=== PATIENT | male | born 1980 | race American Indian/Alaskan Native ===

== ENCOUNTER 2020-03-13 04:25 | Inpatient (IN) | payer MEDICAID ==
[2020-03-13] MEDS ORDERED: ONDANSETRON 4 MG/2 ML INJ IV ONE ×2 (04:51→07:08)
[2020-03-13 05:29] LABS: Basophils # (Auto) 0.1 K/mm3 (0.0-0.1); Eosinophils # (Auto) 0.1 K/mm3 (0.0-0.4); Eosinophils % (Auto) 1.9 % (0.0-4.3); Hematocrit 20.4 % (35.5-45.6); Hemoglobin 6.7 gm/dl (11.8-15.2); Lymphocytes # (Auto) 1.5 K/mm3 (1.2-5.4); Lymphocytes % (Auto) 23.8 % (13.4-35.0); Mean Corpuscular HGB Conc 33 % (32-34); Monocytes # (Auto) 0.5 K/mm3 (0.0-0.8); Monocytes % (Auto) 7.6 % (0.0-7.3); Platelet Count 507 K/mm3 (140-440); Red Blood Count 2.93 M/mm3 (3.65-5.03); Red Cell Distribution Width 16.1 % (13.2-15.2)
[2020-03-13 05:35] LABS: Mean Corpuscular Volume 70 fl (84-94)
[2020-03-13 05:48] LABS: Calcium 8.3 mg/dL (8.4-10.2)
--- NOTE | 2020-03-13 06:18 | Emergency Department Report ---
ED General Adult HPI - General Chief complaint: Nausea/Vomiting/Diarrhea Stated complaint: NAUSEA,VOMITING,HIGH BLOOD SUGAR Time Seen by Provider: 03/13/20 06:14 Source: patient, EMS Mode of arrival: Stretcher Limitations: No Limitations - History of Present Illness Initial comments: This is a 39-year-old male who states he was hospitalized about a year ago and transfused for a bleeding ulcer. This is his second visit to this facility In February for evaluation of similar symptoms. At this time he states that about an hour prior to arrival, he threw up blood "clumps" and mucus. He denied any dark or black or tarry stool. He complains of epigastric pain similar to his previous episode of GI bleeding. He denies fever or chills. He denies chest pain cough or difficulty in breathing. His pain is dull and nonradiating. He is unable to take p.o. secondary to nausea. Patient states that he has moved here from [place]. He has had previous end oscopy in the past. He has not established himself with local care providers. He denies any problems with alcohol and states "I do not drink". He also denies any problems with substance abuse. He has a history of diabetic gastroparesis apparently. He is not compliant with his insulin for 3 days. -: Gradual, hour(s) Location: abdomen Severity scale (0 -10): 0 - Related Data Home Medications Medication Instructions Recorded Confirmed Last Taken Carafate 10 ml PO BID 02/24/20 02/24/20 Unknown Doxazosin [Cardura] 1 mg PO QDAY 02/24/20 02/24/20 Unknown Ondansetron HCl [Zofran] 4 mg PO Q4HR PRN 02/24/20 02/24/20 Unknown hydrALAZINE [Apresoline TAB] 10 mg PO Q8H 02/24/20 02/24/20 Unknown Previous Rx's Medication Instructions Recorded Last Taken Type Doxazosin [Cardura] 1 mg PO QDAY #30 tablet 02/24/20 Unknown Rx Insulin Glargine [Lantus VIAL] 5 unit SUB-Q QHS #5 ml 02/24/20 Unknown Rx Metoclopramide [Reglan] 10 mg PO QID PRN #30 tab 02/24/20 Unknown Rx Sucralfate [Carafate] 1 gm PO Q6HR #120 udc 02/24/20 Unknown Rx hydrALAZINE [Apresoline TAB] 10 mg PO Q8H #90 tablet 02/24/20 Unknown Rx Allergies Allergy/AdvReac Type Severity Reaction Status Date / Time Penicillins Allergy Unknown Verified 02/24/20 11:32 ED Review of Systems ROS: Stated complaint: NAUSEA,VOMITING,HIGH BLOOD SUGAR Other details as noted in HPI Constitutional: denies: chills, fever Eyes: denies: eye pain, vision change ENT: denies: ear pain, throat pain Respiratory: denies: cough, shortness of breath, wheezing Cardiovascular: denies: chest pain, palpitations Endocrine: no symptoms reported Gastrointestinal: abdominal pain, nausea, vomiting, hematemesis. denies: diarrhea Genitourinary: denies: urgency, dysuria Musculoskeletal: denies: back pain, joint swelling, arthralgia Skin: denies: rash, lesions Neurological: denies: headache, weakness, paresthesias Psychiatric: denies: anxiety, depression Hematological/Lymphatic: denies: easy bleeding, easy bruising ED Past Medical Hx - Past Medical History Previous Medical History?: Yes Hx Hypertension: Yes Hx Diabetes: Yes Additional medical history: BLEEDING ULCER AND GASTROPORESIS - Surgical History Past Surgical History?: No - Social History Smoking Status: Current Every Day Smoker - Medications Home Medications: Home Medications Medication Instructions Recorded Confirmed Last Taken Type Carafate 10 ml PO BID 02/24/20 02/24/20 Unknown History Doxazosin [Cardura] 1 mg PO QDAY 02/24/20 02/24/20 Unknown History Doxazosin [Cardura] 1 mg PO QDAY #30 tablet 02/24/20 Unknown Rx Insulin Glargine [Lantus VIAL] 5 unit SUB-Q QHS #5 ml 02/24/20 Unknown Rx Metoclopramide [Reglan] 10 mg PO QID PRN #30 tab 02/24/20 Unknown Rx Ondansetron HCl [Zofran] 4 mg PO Q4HR PRN 02/24/20 02/24/20 Unknown History Sucralfate [Carafate] 1 gm PO Q6HR #120 udc 02/24/20 Unknown Rx hydrALAZINE [Apresoline TAB] 10 mg PO Q8H 08/06/20 08/06/20 Unknown History hydrALAZINE [Apresoline TAB] 10 mg PO Q8H #90 tablet 02/24/20 Unknown Rx ED Physical Exam - General Limitations: Physical Limitation General appearance: alert, in no apparent distress - Head Head exam: Present: atraumatic, normocephalic - Eye Eye exam: Present: normal appearance. Absent: scleral icterus - ENT ENT exam: Present: mucous membranes moist - Neck Neck exam: Present: normal inspection. Absent: tenderness, meningismus - Respiratory Respiratory exam: Present: normal lung sounds bilaterally. Absent: respiratory distress - Cardiovascular Cardiovascular Exam: Present: regular rate, normal rhythm. Absent: systolic mu rmur, diastolic murmur, rubs, gallop - GI/Abdominal GI/Abdominal exam: Present: soft, tenderness, normal bowel sounds. Absent: distended, guarding, rebound, rigid - Rectal Rectal exam: Present: deferred - Extremities Exam Extremities exam: Present: normal inspection - Back Exam Back exam: Present: normal inspection - Neurological Exam Neurological exam: Present: alert, oriented X3, CN II-XII intact. Absent: motor sensory deficit - Psychiatric Psychiatric exam: Present: normal affect, normal mood - Skin Skin exam: Present: warm, dry, intact, normal color. Absent: rash ED Course Vital Signs 03/13/20 03/13/20 03/13/20 04:28 04:30 04:33 Temperature 98.2 F 98.2 F Pulse Rate 92 H 90 86 Respiratory 11 L 10 L 20 Rate Blood Pressure 188/113 Blood Pressure 198/125 [Left] O2 Sat by Pulse 100 100 Oximetry 03/13/20 03/13/20 03/13/20 04:38 05:00 05:30 Temperature Pulse Rate 86 82 Respiratory 20 8 L 13 Rate Blood Pressure 211/115 151/84 Blood Pressure [Left] O2 Sat by Pulse 99 99 100 Oximetry 03/13/20 03/13/20 03/13/20 06:00 06:30 06:46 Temperature Pulse Rate 91 H 87 97 H Respiratory 9 L 15 Rate Blood Pressure 182/113 166/105 145/91 Blood Pressure 145/91 [Left] O2 Sat by Pulse 100 100 Oximetry 03/13/20 03/13/20 03/13/20 07:00 08:00 08:58 Temperature 98.1 F Pulse Rate 93 H 82 88 Respiratory 11 L 12 12 Rate Blood Pressure 177/102 155/87 184/123 Blood Pressure [Left] O2 Sat by Pulse 98 97 100 Oximetry 03/13/20 03/13/20 03/13/20 09:01 09:13 09:43 Temperature 98.2 F 98.2 F Pulse Rate 90 86 76 Respiratory 10 L 12 12 Rate Blood Pressure 184/123 189/118 191/108 Blood Pressure [Left] O2 Sat by Pulse 100 99 100 Oximetry 03/13/20 03/13/20 03/13/20 10:00 10:13 10:21 Temperature 98.1 F 98.1 F Pulse Rate 77 79 79 Respiratory 10 L 12 12 Rate Blood Pressure 200/125 218/135 218/135 Blood Pressure [Left] O2 Sat by Pulse 100 100 100 Oximetry 03/13/20 03/13/20 03/13/20 11:00 11:30 11:41 Temperature Pulse Rate 74 75 80 Respiratory 18 14 14 Rate Blood Pressure 179/105 195/114 195/114 Blood Pressure [Left] O2 Sat by Pulse 99 100 Oximetry - Reevaluation(s) Reevaluation #1: Patient's blood pressure on recheck was very close to the normotensive range. Blood pressure management at this point is not required. He was given Protonix, analgesia and Zofran. He is given insulin for his hyperglycemia. He is not in DKA. A unit of red cells is ordered for transfusion. Patient will be admitted to the hospital for further care and evaluation. 03/13/20 07:11 03/13/20 07:12 03/13/20 07:14 Patient has dropped his hemoglobin more than 2 g since earlier this month. Reevaluation #2: Patient is noted to have a troponin of 0.156 somewhat elevated CK. His twelve- lead EKG shows left axis deviation right bundle Kaiden pattern, LVH, left atrial enlargement, normal sinus rhythm at 88. I compared this to his previous EKG earlier this month. There is no interval change. Unit of blood has been ordered. I will give the patient an aspirin. I do not think he is a candidate for anticoagulation. Additionally he is not complaining of chest pain and he is actually quite comfortable at this time. I do not think he is a likely candidate for emergent catheterization or endoscopy. I have placed a consult to cardiology and GI. I have called the hospitalist service for further care and evaluation. Obviously the patient will be admitted for further care and stabilization. 03/13/20 07:54 ED Medical Decision Making - Lab Data Result diagrams: 03/13/20 04:57 03/13/20 04:57 Laboratory Results - last 24 hr 03/13/20 03/13/20 03/13/20 04:57 04:57 04:57 WBC 6.5 RBC 2.93 L Hgb 6.7 L Hct 20.4 L MCV 70 L MCH 23 L MCHC 33 RDW 16.1 H Plt Count 507 H Lymph % (Auto) 23.8 [place] % (Auto) 7.6 H Eos % (Auto) 1.9 Baso % (Auto) 2.0 H Lymph # 1.5 [place] # 0.5 Eos # 0.1 Baso # 0.1 Seg Neutrophils % 64.7 Seg Neutrophils # 4.2 VBG pH 7.390 Sodium 129 L Potassium 4.2 Chloride 90.6 L Carbon Dioxide 27 Anion Gap 16 BUN 32 H Creatinine 1.6 H Estimated GFR 58 BUN/Creatinine Ratio 20 Glucose 537 H* Calcium 8.3 L Laboratory Results - last 24 hr 03/13/20 03/13/20 03/13/20 04:57 04:57 04:57 WBC 6.5 RBC 2.93 L Hgb 6.7 L Hct 20.4 L MCV 70 L MCH 23 L MCHC 33 RDW 16.1 H Plt Count 507 H Lymph % (Auto) 23.8 [place] % (Auto) 7.6 H Eos % (Auto) 1.9 Baso % (Auto) 2.0 H Lymph # 1.5 [place] # 0.5 Eos # 0.1 Baso # 0.1 Seg Neutrophils % 64.7 Seg Neutrophils # 4.2 APTT VBG pH 7.390 Sodium 129 L Potassium 4.2 Chloride 90.6 L Carbon Dioxide 27 Anion Gap 16 BUN 32 H Creatinine 1.6 H Estimated GFR 58 BUN/Creatinine Ratio 20 Glucose 537 H* Lactic Acid Calcium 8.3 L Magnesium Total Bilirubin Direct Bilirubin AST ALT Alkaline Phosphatase Total Creatine Kinase CK-MB (CK-2) CK-MB (CK-2) Rel Index Troponin T NT-Pro-B Natriuret Pep Total Protein Albumin Albumin/Globulin Ratio Lipase 03/13/20 03/13/20 03/13/20 06:36 06:36 06:36 WBC RBC Hgb Hct MCV MCH MCHC RDW Plt Count Lymph % (Auto) [place] % (Auto) Eos % (Auto) Baso % (Auto) Lymph # [place] # Eos # Baso # Seg Neutrophils % Seg Neutrophils # APTT 31.5 VBG pH Sodium Potassium Chloride Carbon Dioxide Anion Gap BUN Creatinine Estimated GFR BUN/Creatinine Ratio Glucose Lactic Acid 1.00 Calcium Magnesium 1.90 Total Bilirubin 0.20 Direct Bilirubin < 0.2 AST 11 ALT 13 Alkaline Phosphatase 78 Total Creatine Kinase CK-MB (CK-2) CK-MB (CK-2) Rel Index Troponin T 0.156 H* NT-Pro-B Natriuret Pep 1151 H Total Protein 5.9 L Albumin 2.5 L Albumin/Globulin Ratio 0.7 Lipase 61 H 03/13/20 06:36 WBC RBC Hgb Hct MCV MCH MCHC RDW Plt Count Lymph % (Auto) [place] % (Auto) Eos % (Auto) Baso % (Auto) Lymph # [place] # Eos # Baso # Seg Neutrophils % Seg Neutrophils # APTT VBG pH Sodium Potassium Chloride Carbon Dioxide Anion Gap BUN Creatinine Estimated GFR BUN/Creatinine Ratio Glucose Lactic Acid Calcium Magnesium Total Bilirubin Direct Bilirubin AST ALT Alkaline Phosphatase Total Creatine Kinase 7 L CK-MB (CK-2) 4.9 H CK-MB (CK-2) Rel Index 70.0 H Troponin T NT-Pro-B Natriuret Pep Total Protein Albumin Albumin/Globulin Ratio Lipase - Radiology Data Radiology results: report reviewed, image reviewed No acute process chest x-ray Critical care attestation.: If time is entered above; I have spent that time in minutes in the direct care of this critically ill patient, excluding procedure time. ED Disposition Clinical Impression: Upper GI bleeding, Symptomatic anemia, Elevated troponin Hyperglycemia due to type 2 diabetes mellitus Qualifiers: Diabetes mellitus chcf insulin use: without chcf use Qualified Code(s ): E11.65 - Type 2 diabetes mellitus with hyperglycemia Cardiomyopathy Qualifiers: Cardiomyopathy type: unspecified Qualified Code(s): I42.9 - Cardiomyopathy, unspecified Disposition: OP ADMIT IP TO THIS HOSP Is pt being admited?: Yes Does the pt Need Aspirin: Yes Condition: Stable Time of Disposition: 15:44
[2020-03-13] MEDS ORDERED: PANTOPRAZOLE 40 MG INJ IV ONE (06:19)
[2020-03-13] MEDS ORDERED: INSULIN REGULAR, HUMAN 100 UNIT/ML 3ML VIAL IV ONE (06:21)
[2020-03-13] MEDS ORDERED: INSULIN REGULAR, HUMAN 100 UNITS/1 ML ONE (06:30)
--- NOTE | 2020-03-13 07:01 | XRay Report ---
CHEST 1 VIEW, 03/13/2020 6:35 AM CLINICAL INFORMATION/INDICATION: Chest pain. Nausea. COMPARISON: None FINDINGS: SUPPORT DEVICES: None. HEART: The cardiac silhouette is normal in size. LUNGS/PLEURA: The lungs are clear of focal airspace disease or significant pleural effusion. ADDITIONAL FINDINGS: No additional acute findings. IMPRESSION: 1. No evidence of acute cardiopulmonary process. Signer Name: Victoria Auguste MD Signed: 03/13/2020 6:57 AM Workstation Name: [id number]
[2020-03-13] MEDS ORDERED: SODIUM CHLORIDE 0.9% 500 ML 500 ML IV ONE (07:04)
[2020-03-13 07:07] LABS: Creatine Kinase MB 4.9 ng/mL (0.0-4.0)
[2020-03-13] MEDS ORDERED: MORPHINE 2 MG/1 ML INJ IV ONE (07:08)
[2020-03-13 07:17] LABS: Alanine Aminotransferase 13 units/L (7-56); Albumin 2.5 g/dL (3.9-5)
[2020-03-13 07:20] LABS: Bilirubin,Direct < 0.2 mg/dL (0-0.2)
[2020-03-13 07:32] LABS: Chol/HDL Ratio 1.73 %; HDL Cholesterol 49 mg/dL (40-59); LDL Cholesterol,Direct 25 mg/dL (50-130)
[2020-03-13] MEDS ORDERED: ASPIRIN 325 MG TAB PO ONE (07:52)
--- NOTE | 2020-03-13 12:47 | Gastroenterology Consultation ---
History of Present Illness - Reason for Consult Consult date: 03/13/20 Gi bleed Requesting physician: OSCAR YATES - History of Present Illness This is a 39 yo male with pmh of PUD, HTN, and DM admitted overnight for GI bleed. Patient reports having epigastric pain with nausea and hematemesis for the past several days. He was seen in the ED earlier this month with similar complaints and being out of his medications. He states he just recently moved to the area and about 2 years ago was hospitalized for bleeding ulcer and had EGD in [place]. Colonoscopy done last year in [place] also. No records available. Denies any melena or rectal bleeding. In the ED, noted to have drop in Hgb and received 1 unit of PRBC overnight. Noted to have elevated troponin and elevated BP. Cardiology consulted. Denies any alcohol use or NSAID use. Not on any medication. Medication list reviewed. Past History Past Medical History: diabetes, GERD, hypertension Social history: denies: alcohol abuse Family history: no significant family history Medications and Allergies Allergies Allergy/AdvReac Type Severity Reaction Status Date / Time Penicillins Allergy Unknown Verified 02/24/20 11:32 Home Medications Medication Instructions Recorded Confirmed Last Taken Type Carafate 10 ml PO BID 02/24/20 02/24/20 Unknown History Doxazosin [Cardura] 1 mg PO QDAY 02/24/20 02/24/20 Unknown History Doxazosin [Cardura] 1 mg PO QDAY #30 tablet 02/24/20 Unknown Rx Insulin Glargine [Lantus VIAL] 5 unit SUB-Q QHS #5 ml 02/24/20 Unknown Rx Metoclopramide [Reglan] 10 mg PO QID PRN #30 tab 02/24/20 Unknown Rx Ondansetron HCl [Zofran] 4 mg PO Q4HR PRN 02/24/20 02/24/20 Unknown History Sucralfate [Carafate] 1 gm PO Q6HR #120 udc 02/24/20 Unknown Rx hydrALAZINE [Apresoline TAB] 10 mg PO Q8H 02/24/20 02/24/20 Unknown History hydrALAZINE [Apresoline TAB] 10 mg PO Q8H #90 tablet 02/24/20 Unknown Rx Active Meds: Active Medications Ondansetron HCl (Zofran) 4 mg IV Q8H PRN PRN Reason: Nausea And Vomiting Pantoprazole Sodium (Protonix) 40 mg IV BID DIMITRIOS Review of Systems - Review of Systems All systems: negative Constitutional: no weight loss, no weight gain Eyes: no change in vision Cardiovascular: no chest pain Gastrointestinal: abdominal pain, nausea, vomiting, melena, no BRBPR, no h ematochezia Neurological: weakness, no head injury Psychiatric: no anxiety Endocrine: no cold intolerance Allergic/Immunologic: no wheezing Exam - Constitutional Vital Signs: Temp Pulse Resp BP Pulse Ox 98.1 F 88 13 101/55 100 03/13/20 10:21 03/13/20 12:10 03/13/20 12:10 03/13/20 12:10 03/13/20 12:10 General appearance: mild distress - EENT Eyes: EOM intact ENT: hearing intact - Neck Neck: supple - Respiratory Respiratory effort: normal - Cardiovascular Rhythm: regular Heart Sounds: Present: S1 & S2 - Gastrointestinal General gastrointestinal: Present: soft, tender, non-distended - Integumentary Integumentary: Present: clear, warm - Neurologic Neurological: alert and oriented x3 - Labs CBC & Chem 7: 03/13/20 04:57 03/13/20 04:57 Lab Results: Laboratory Results - last 24 hr 03/13/20 03/13/20 03/13/20 04:57 04:57 04:57 WBC 6.5 RBC 2.93 L Hgb 6.7 L Hct 20.4 L MCV 70 L MCH 23 L MCHC 33 RDW 16.1 H Plt Count 507 H Lymph % (Auto) 23.8 [place] % (Auto) 7.6 H Eos % (Auto) 1.9 Baso % (Auto) 2.0 H Lymph # 1.5 [place] # 0.5 Eos # 0.1 Baso # 0.1 Seg Neutrophils % 64.7 Seg Neutrophils # 4.2 APTT VBG pH 7.390 Sodium 129 L Potassium 4.2 Chloride 90.6 L Carbon Dioxide 27 Anion Gap 16 BUN 32 H Creatinine 1.6 H Estimated GFR 58 BUN/Creatinine Ratio 20 Glucose 537 H* Lactic Acid Calcium 8.3 L Magnesium Total Bilirubin Direct Bilirubin AST ALT Alkaline Phosphatase Total Creatine Kinase CK-MB (CK-2) CK-MB (CK-2) Rel Index Troponin T NT-Pro-B Natriuret Pep Total Protein Albumin Albumin/Globulin Ratio Triglycerides Cholesterol LDL Cholesterol Direct HDL Cholesterol Cholesterol/HDL Ratio Lipase Blood Type Antibody Screen Crossmatch 03/13/20 03/13/20 03/13/20 06:36 06:36 06:36 WBC RBC Hgb Hct MCV MCH MCHC RDW Plt Count Lymph % (Auto) [place] % (Auto) Eos % (Auto) Baso % (Auto) Lymph # [place] # Eos # Baso # Seg Neutrophils % Seg Neutrophils # APTT 31.5 VBG pH Sodium Potassium Chloride Carbon Dioxide Anion Gap BUN Creatinine Estimated GFR BUN/Creatinine Ratio Glucose Lactic Acid Calcium Magnesium 1.90 Total Bilirubin 0.20 Direct Bilirubin < 0.2 AST 11 ALT 13 Alkaline Phosphatase 78 Total Creatine Kinase CK-MB (CK-2) CK-MB (CK-2) Rel Index Troponin T 0.156 H* NT-Pro-B Natriuret Pep 1151 H Total Protein 5.9 L Albumin 2.5 L Albumin/Globulin Ratio 0.7 Triglycerides 98 Cholesterol 85 LDL Cholesterol Direct 25 L HDL Cholesterol 49 Cholesterol/HDL Ratio 1.73 Lipase 61 H Blood Type B POSITIVE Antibody Screen Negative Crossmatch See Detail 03/13/20 03/13/20 06:36 06:36 WBC RBC Hgb Hct MCV MCH MCHC RDW Plt Count Lymph % (Auto) [place] % (Auto) Eos % (Auto) Baso % (Auto) Lymph # [place] # Eos # Baso # Seg Neutrophils % Seg Neutrophils # APTT VBG pH Sodium Potassium Chloride Carbon Dioxide Anion Gap BUN Creatinine Estimated GFR BUN/Creatinine Ratio Glucose Lactic Acid 1.00 Calcium Magnesium Total Bilirubin Direct Bilirubin AST ALT Alkaline Phosphatase Total Creatine Kinase 338 H CK-MB (CK-2) 4.9 H CK-MB (CK-2) Rel Index 1.4 Troponin T NT-Pro-B Natriuret Pep Total Protein Albumin Albumin/Globulin Ratio Triglycerides Cholesterol LDL Cholesterol Direct HDL Cholesterol Cholesterol/HDL Ratio Lipase Blood Type Antibody Screen Crossmatch Assessment and Plan - Patient Problems (1) Upper GI bleeding Current Visit: Yes Status: Acute Plan to address problem: # Hematemesis # Upper GI bleed - Hgb down from earlier this month. down to 6.7. s/p 1 unit of PRBC. - h/o ulcers per patient report - hypertensive. Rec: - will plan for EGD. - keep NPO - monitor H/H serially. - protonix IV. - antiemetics prn. - further recs based on endoscopy results.
[2020-03-13] MEDS: PANTOPRAZOLE 40 MG INJ IV SCH ×2 (12:58→22:46)
[2020-03-13] MEDS: ONDANSETRON 4 MG/2 ML INJ IV PRN (12:58)
--- NOTE | 2020-03-13 13:22 | Consultation ---
History of Present Illness Consult date: 03/13/20 Consult reason: elevated troponin History of present illness: 39-year old male who presents with abdominal pain, nausea, vomiting ongoing for several days and uncontrolled blood pressure. Of note, he was seen in the ED, early February with similar complaints. He has a reported history of diabetes, gastroparesis, gastric ulcers and hypertension. It is also reported he has been out of his medications for several days. Systolic blood pressure greater than 180 on initial workup. A cardiac consultation has been requested for elevated troponin measurement. Initial labs revealed severe anemia with a HCT of 20.4 and uncontrolled diabetes, blood glucose at 537. Creatinine of 1.6 and Troponin T at 0.156. There were no reports of chest pain. There is no reported cardiac history. An ECG is sinus rhythm with left anterior fascicular block and right bundle branch block. Medications and Allergies Allergies Allergy/AdvReac Type Severity Reaction Status Date / Time Penicillins Allergy Unknown Verified 02/24/20 11:32 Home Medications Medication Instructions Recorded Confirmed Last Taken Type Carafate 10 ml PO BID 02/24/20 02/24/20 Unknown History Doxazosin [Cardura] 1 mg PO QDAY 02/24/20 02/24/20 Unknown History Doxazosin [Cardura] 1 mg PO QDAY #30 tablet 02/24/20 Unknown Rx Insulin Glargine [Lantus VIAL] 5 unit SUB-Q QHS #5 ml 02/24/20 Unknown Rx Metoclopramide [Reglan] 10 mg PO QID PRN #30 tab 02/24/20 Unknown Rx Ondansetron HCl [Zofran] 4 mg PO Q4HR PRN 02/24/20 02/24/20 Unknown History Sucralfate [Carafate] 1 gm PO Q6HR #120 udc 02/24/20 Unknown Rx hydrALAZINE [Apresoline TAB] 10 mg PO Q8H 02/24/20 02/24/20 Unknown History hydrALAZINE [Apresoline TAB] 10 mg PO Q8H #90 tablet 02/24/20 Unknown Rx Active Meds: Active Medications Ondansetron HCl (Zofran) 4 mg IV Q8H PRN PRN Reason: Nausea And Vomiting Last Admin: 03/13/20 12:58 Dose: 4 mg Documented by: Pantoprazole Sodium (Protonix) 40 mg IV BID DIMITRIOS Last Admin: 03/13/20 12:58 Dose: 40 mg Documented by: Physical Examination Vital Signs Pulse Resp 92 H 11 L 03/13/20 04:28 03/13/20 04:28 General appearance: mild distress (with nausea and vomiting) Cardiac: Positive: Reg Rate and Rhythm Results 03/13/20 04:57 03/13/20 04:57 Cardiac Enzymes 03/13/20 03/13/20 Range/Units 06:36 06:36 AST 11 (5-40) units/L CK-MB (CK-2) 4.9 H (0.0-4.0) ng/mL Coagulation 03/13/20 Range/Units 06:36 APTT 31.5 (24.2-36.6) Sec. Lipids 03/13/20 Range/Units 06:36 Triglycerides 98 (2-149) mg/dL Cholesterol 85 (50-199) mg/dL HDL Cholesterol 49 (40-59) mg/dL Cholesterol/HDL Ratio 1.73 % CBC 03/13/20 Range/Units 04:57 WBC 6.5 (4.5-11.0) K/mm3 RBC 2.93 L (3.65-5.03) M/mm3 Hgb 6.7 L (11.8-15.2) gm/dl Hct 20.4 L (35.5-45.6) % Plt Count 507 H (140-440) K/mm3 Lymph # 1.5 (1.2-5.4) K/mm3 [place] # 0.5 (0.0-0.8) K/mm3 Eos # 0.1 (0.0-0.4) K/mm3 Baso # 0.1 (0.0-0.1) K/mm3 Comprehensive Metabolic Panel 03/13/20 03/13/20 Range/Units 04:57 06:36 Sodium 129 L (137-145) mmol/L Potassium 4.2 (3.6-5.0) mmol/L Chloride 90.6 L (98-107) mmol/L Carbon Dioxide 27 (22-30) mmol/L BUN 32 H (9-20) mg/dL Creatinine 1.6 H (0.8-1.3) mg/dL Glucose 537 H* (75-100) mg/dL Calcium 8.3 L (8.4-10.2) mg/dL Direct Bilirubin < 0.2 (0-0.2) mg/dL AST 11 (5-40) units/L ALT 13 (7-56) units/L Alkaline Phosphatase 78 (35-129) units/L Total Protein 5.9 L (6.3-8.2) g/dL Albumin 2.5 L (3.9-5) g/dL Assessment and Plan Elevated troponin, nonspecific 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
--- NOTE | 2020-03-13 14:11 | Anesthesia Consultation ---
<NATHAN US - Last Filed: 03/13/20 14:08> Anesthesia Consult and Med Hx Date of service: 03/13/20 - Airway Anesthetic Teeth Evaluation: Good ROM Head & Neck: Adequate Mental/Hyoid Distance: Adequate Mallampati Class: Class II Intubation Access Assessment: Probably Good - Pre-Operative Health Status ASA Pre-Surgery Classification: ASA3 Proposed Anesthetic Plan: MAC - Pulmonary Hx Smoking: Yes (past smoker) Hx Asthma: No Hx Respiratory Symptoms: No SOB: No COPD: No Home Oxygen Therapy: No Hx Pneumonia: No Hx Sleep Apnea: No - Cardiovascular System Hx Hypertension: Yes Hx Coronary Artery Disease: No Hx Heart Attack/AMI: No Hx Angina: No Hx Percutaneous Transluminal Coronary Angioplasty (PTCA): No Hx Cardia Arrhythmia: No Hx Pacemaker: No Hx Internal Defibrillator: No Hx Valvular Heart Disease: No Hx Heart Murmur: No Hx Peripheral Vascular Disease: No - Central Nervous System Hx Neuromuscular Disorder: No Hx Seizures: No CVA: No Hx Back Pain: No Hx Psychiatric Problems: No - Gastrointestinal Hx Ulcer: Yes Hx Gastroesophageal Reflux Disease: Yes - Endocrine Hx Renal Disease: No Hx End Stage Renal Disease: No Hx Cirrhosis: No Hx Liver Disease: No Hx Insulin Dependent Diabetes: Yes Hx Non-Insulin Dependent Diabetes: No Hx Thyroid Disease: No Hx Hypothyroidism: No Hx Hyperthyroidism: No - Hematic Hx Anemia: No Hx Sickle Cell Disease: No - Other Systems Hx Alcohol Use: No Hx Substance Use: No Hx Cancer: No Hx Obesity: No <MAGDIEL SILVA - Last Filed: 03/13/20 16:55> Anesthesia Consult and Med Hx - Pre-Operative Health Status ASA Pre-Surgery Classification: ASA3, Emergency - Additional Comments Anesthesia Medical History Comments: Hx poorly controlled HTN, DM and PUD presenting with coffee ground emesis and anemia scheduled for EGD. On arrival, patient noted to have significantly elevated blood pressure and glucose as well as elevated troponins and BNP w/ abnormal EKG (abnormal at baseline). Since admission, he has received 1 unit pRBCs however glucose and blood pressure remain severely elevated. Cardiology has been consulted and TTE has been ordered. Patient's medical condition was discussed with GI MD and decision was made to allow time for further optimization prior to EGD since he is currently HD stable. Plan for EGD tomorrow AM unless the patient shows signs of acute bleed or decompensation overnight. I discussed these concerns and plan with the patient. He verbalized understanding. GI also discussed the plan with alyssa polk.
--- NOTE | 2020-03-13 14:12 | Anesthesia Day of Surgery ---
<NATHAN US - Last Filed: 03/13/20 14:11> Anesthesia Day of Surgery - Day of Surgery Patient Examined: Yes Patient H&P Reviewed: Yes Patient is NPO: Yes Cardiac Clearance: Yes <MAGDIEL SILVA - Last Filed: 03/13/20 16:55> Anesthesia Day of Surgery - Day of Surgery Cardiac Clearance: No (additional cardiac work up pending)
[2020-03-13] MEDS ORDERED: SODIUM CHLORIDE 0.9% 1000 ML 1,000 ML IV SCH (14:30)
[2020-03-13] MEDS ORDERED: INSULIN LISPRO 100 UNIT/ML VIAL 3 mL SUB-Q ONE ×2 (14:48→17:41)
--- NOTE | 2020-03-13 15:04 | History and Physical Report ---
History of Present Illness Date of examination: 03/13/20 Date of admission: 03/13/20 08:13 Chief complaint: Hematemesis 1 hr ago History of present illness: 39-year-old male who states he was hospitalized about a year ago and transfused for a bleeding ulcer. This is his second visit to this facility for evaluation of similar symptoms. At this time he states that about an hour prior to arrival, he threw up blood "clumps" and mucus. He denied any dark or black or tarry stool. He complains of epigastric pain similar to his previous episode of GI bleeding. He denies fever or chills. He denies chest pain cough or difficulty in breathing. His pain is dull and nonradiating. He is unable to take p.o. secondary to nausea. Patient states that he has moved here from [place]. He has had previous endoscopy in the past. He has not established himself with local care providers. He denies any problems with alcohol and states "I do not drink". He also denies any problems with substance abuse. He has a history of diabetic gastroparesis apparently. He is not compliant with his insulin for 3 days. - Past Medical History Previous Medical History?: Yes Hx Hypertension: Yes Hx Diabetes: Yes Additional medical history: BLEEDING ULCER AND GASTROPORESIS - Surgical History Past Surgical History?: No - Social History Smoking Status: Current Every Day Smoker Family Hx Htn - Medications Home Medications: Home Medications Medication Instructions Recorded Confirmed Last Taken Type Carafate 10 ml PO BID 02/24/20 02/24/20 Unknown History Doxazosin [Cardura] 1 mg PO QDAY 02/24/20 02/24/20 Unknown History Doxazosin [Cardura] 1 mg PO QDAY #30 tablet 02/24/20 Unknown Rx Insulin Glargine [Lantus VIAL] 5 unit SUB-Q QHS #5 ml 02/24/20 Unknown Rx Metoclopramide [Reglan] 10 mg PO QID PRN #30 tab 02/24/20 Unknown Rx Ondansetron HCl [Zofran] 4 mg PO Q4HR PRN 02/24/20 02/24/20 Unknown History Sucralfate [Carafate] 1 gm PO Q6HR #120 udc 02/24/20 Unknown Rx hydrALAZINE [Apresoline TAB] 10 mg PO Q8H 02/24/20 02/24/20 Unknown History hydrALAZINE [Apresoline TAB] 10 mg PO Q8H #90 tablet 02/24/20 Unknown Rx Review of Systems ROS: Stated complaint: NAUSEA,VOMITING,HIGH BLOOD SUGAR Other details as noted in HPI Constitutional: denies: chills, fever Eyes: denies: eye pain, vision change ENT: denies: ear pain, throat pain Respiratory: denies: cough, shortness of breath, wheezing Cardiovascular: denies: chest pain, palpitations Endocrine: no symptoms reported Gastrointestinal: abdominal pain, nausea, vomiting, hematemesis. denies: diarrhea Genitourinary: denies: urgency, dysuria Musculoskeletal: denies: back pain, joint swelling, arthralgia Skin: denies: rash, lesions Neurological: denies: headache, weakness, paresthesias Psychiatric: denies: anxiety, depression Hematological/Lymphatic: denies: easy bleeding, easy bruising Past History Past Medical History: diabetes, GERD, hypertension Social history: denies: alcohol abuse Family history: no significant family history Medications and Allergies Allergies Allergy/AdvReac Type Severity Reaction Status Date / Time Penicillins Allergy Unknown Verified 02/24/20 11:32 Home Medications Medication Instructions Recorded Confirmed Last Taken Type Carafate 10 ml PO BID 02/24/20 02/24/20 Unknown History Doxazosin [Cardura] 1 mg PO QDAY 02/24/20 02/24/20 Unknown History Doxazosin [Cardura] 1 mg PO QDAY #30 tablet 02/24/20 Unknown Rx Insulin Glargine [Lantus VIAL] 5 unit SUB-Q QHS #5 ml 02/24/20 Unknown Rx Metoclopramide [Reglan] 10 mg PO QID PRN #30 tab 02/24/20 Unknown Rx Ondansetron HCl [Zofran] 4 mg PO Q4HR PRN 02/24/20 02/24/20 Unknown History Sucralfate [Carafate] 1 gm PO Q6HR #120 udc 02/24/20 Unknown Rx hydrALAZINE [Apresoline TAB] 10 mg PO Q8H 02/24/20 02/24/20 Unknown History hydrALAZINE [Apresoline TAB] 10 mg PO Q8H #90 tablet 02/24/20 Unknown Rx Active Meds: Active Medications Sodium Chloride (Nacl 0.9% 1000 Ml) 1,000 mls @ 50 mls/hr IV DIRECT DIMITRIOS Insulin Human Lispro (Humalog) 20 unit SUB-Q ONCE ONE Stop: 03/13/20 14:49 Insulin Human Lispro (Humalog) 0 unit SUB-Q Q4H [facility]; Protocol Ondansetron HCl (Zofran) 4 mg IV Q8H PRN PRN Reason: Nausea And Vomiting Last Admin: 03/13/20 12:58 Dose: 4 mg Documented by: Pantoprazole Sodium (Protonix) 40 mg IV BID DIMITRIOS Last Admin: 03/13/20 12:58 Dose: 40 mg Documented by: Exam - Constitutional Vitals: Temp Pulse Resp BP Pulse Ox 98.1 F 88 13 101/55 100 03/13/20 10:21 03/13/20 12:10 03/13/20 12:10 03/13/20 12:10 03/13/20 12:10 General appearance: Present: no acute distress, well-nourished - EENT Eyes: Present: PERRL ENT: hearing intact, clear oral mucosa - Neck Neck: Present: supple, normal ROM - Respiratory Respiratory effort: normal Respiratory: bilateral: CTA - Cardiovascular Heart rate: 78 Rhythm: regular Heart Sounds: Present: S1 & S2. Absent: rub, click - Extremities Extremities: pulses symmetrical, No edema Peripheral Pulses: within normal limits - Abdominal General gastrointestinal: Present: soft, non-tender, non-distended, normal bowel sounds Male genitourinary: Present: normal - Integumentary Integumentary: Present: clear, warm, dry - Musculoskeletal Musculoskeletal: gait normal, strength equal bilaterally - Psychiatric Psychiatric: appropriate mood/affect, intact judgment & insight - Neurologic Neurologic: CNII-XII intact, moves all extremities HEART Score - HEART Score Troponin: Troponin T 0.156 ng/mL (0.00-0.029) H* 03/13/20 06:36 Results - Labs CBC & Chem 7: 03/13/20 17:36 03/13/20 17:36 Labs: Laboratory Last Values WBC 6.5 K/mm3 (4.5-11.0) 03/13/20 04:57 RBC 2.93 M/mm3 (3.65-5.03) L 03/13/20 04:57 Hgb 6.7 gm/dl (11.8-15.2) L 03/13/20 04:57 Hct 20.4 % (35.5-45.6) L 03/13/20 04:57 MCV 70 fl (84-94) L 03/13/20 04:57 MCH 23 pg (28-32) L 03/13/20 04:57 MCHC 33 % (32-34) 03/13/20 04:57 RDW 16.1 % (13.2-15.2) H 03/13/20 04:57 Plt Count 507 K/mm3 (140-440) H 03/13/20 04:57 Lymph % (Auto) 23.8 % (13.4-35.0) 03/13/20 04:57 [place] % (Auto) 7.6 % (0.0-7.3) H 03/13/20 04:57 Eos % (Auto) 1.9 % (0.0-4.3) 03/13/20 04:57 Baso % (Auto) 2.0 % (0.0-1.8) H 03/13/20 04:57 Lymph # 1.5 K/mm3 (1.2-5.4) 03/13/20 04:57 [place] # 0.5 K/mm3 (0.0-0.8) 03/13/20 04:57 Eos # 0.1 K/mm3 (0.0-0.4) 03/13/20 04:57 Baso # 0.1 K/mm3 (0.0-0.1) 03/13/20 04:57 Seg Neutrophils % 64.7 % (40.0-70.0) 03/13/20 04:57 Seg Neutrophils # 4.2 K/mm3 (1.8-7.7) 03/13/20 04:57 APTT 31.5 Sec. (24.2-36.6) 03/13/20 06:36 VBG pH 7.390 (7.320-7.420) 03/13/20 04:57 Sodium 129 mmol/L (137-145) L 03/13/20 04:57 Potassium 4.2 mmol/L (3.6-5.0) 03/13/20 04:57 Chloride 90.6 mmol/L (98-107) L 03/13/20 04:57 Carbon Dioxide 27 mmol/L (22-30) 03/13/20 04:57 Anion Gap 16 mmol/L 03/13/20 04:57 BUN 32 mg/dL (9-20) H 03/13/20 04:57 Creatinine 1.6 mg/dL (0.8-1.3) H 03/13/20 04:57 Estimated GFR 58 ml/min 03/13/20 04:57 BUN/Creatinine Ratio 20 % 03/13/20 04:57 Glucose 537 mg/dL (75-100) H* 03/13/20 04:57 Lactic Acid 1.00 mmol/L (0.7-2.0) 03/13/20 06:36 Calcium 8.3 mg/dL (8.4-10.2) L 03/13/20 04:57 Magnesium 1.90 mg/dL (1.7-2.3) 03/13/20 06:36 Total Bilirubin 0.20 mg/dL (0.1-1.2) 03/13/20 06:36 Direct Bilirubin < 0.2 mg/dL (0-0.2) 03/13/20 06:36 AST 11 units/L (5-40) 03/13/20 06:36 ALT 13 units/L (7-56) 03/13/20 06:36 Alkaline Phosphatase 78 units/L (35-129) 03/13/20 06:36 Total Creatine Kinase 338 units/L (55-170) H 03/13/20 06:36 CK-MB (CK-2) 4.9 ng/mL (0.0-4.0) H 03/13/20 06:36 CK-MB (CK-2) Rel Index 1.4 (0-4) 03/13/20 06:36 Troponin T 0.156 ng/mL (0.00-0.029) H* 03/13/20 06:36 NT-Pro-B Natriuret Pep 1151 pg/mL (0-450) H 03/13/20 06:36 Total Protein 5.9 g/dL (6.3-8.2) L 03/13/20 06:36 Albumin 2.5 g/dL (3.9-5) L 03/13/20 06:36 Albumin/Globulin Ratio 0.7 % 03/13/20 06:36 Triglycerides 98 mg/dL (2-149) 03/13/20 06:36 Cholesterol 85 mg/dL (50-199) 03/13/20 06:36 LDL Cholesterol Direct 25 mg/dL (50-130) L 03/13/20 06:36 HDL Cholesterol 49 mg/dL (40-59) 03/13/20 06:36 Cholesterol/HDL Ratio 1.73 % 03/13/20 06:36 Lipase 61 units/L (13-60) H 03/13/20 06:36 Blood Type B POSITIVE 03/13/20 06:36 Antibody Screen Negative 03/13/20 06:36 Crossmatch See Detail 03/13/20 06:36 Herrera/IV: IV Catheter Type [Right Hand] Peripheral IV Assessment and Plan Advance Directives: Yes (Full code) VTE prophylaxis?: Mechanical Plan of care discussed with patient/family: Yes - Patient Problems (1) Upper GI bleeding Current Visit: Yes Status: Acute Plan to address problem: GI consult NPO IV protonix Serial H/h (2) IDDM (insulin dependent diabetes mellitus) Current Visit: Yes Status: Chronic Plan to address problem: Insulin dosage adjusted Uncontrolled (3) Hypertensive emergency Current Visit: Yes Status: Acute Plan to address problem: IV labetalol and Catapress patch atient is NPO (4) Deep vein thrombosis (DVT) prophylaxis not tolerated by patient Current Visit: Yes Status: Acute (5) DVT prophylaxis Current Visit: Yes Status: Acute Plan to address problem: On SCD's and GI prophylaxis
[2020-03-13] MEDS ORDERED: WATER FOR IRRIG STERILE 1,000 ML BOTTLE ONE (15:47)
[2020-03-13] MEDS ORDERED: hydrALAZINE 20 MG/1 ML INJ IV PRN (15:53)
[2020-03-13] MEDS: INSULIN LISPRO 100 UNIT/ML VIAL 3 mL SUB-Q SCH ×3 (17:02→22:46)
[2020-03-13] MEDS ORDERED: cloNIDine TTS 0.2 MG/24 HR PATCH TD SCH (18:00)
[2020-03-13 18:06] LABS: Hematocrit 21.2 % (35.5-45.6); Hemoglobin 7.6 gm/dl (11.8-15.2)
[2020-03-13 18:10] LABS: Calcium 8.3 mg/dL (8.4-10.2)
[2020-03-13] MEDS ORDERED: hydrALAZINE 20 MG/1 ML INJ IV SCH (22:00)
[2020-03-14] MEDS ORDERED: ACETAMINOPHEN 325 MG TAB PO ONE (03:04)
[2020-03-14] MEDS: INSULIN LISPRO 100 UNIT/ML VIAL 3 mL SUB-Q SCH ×5 (03:16→20:49)
[2020-03-14] MEDS: ONDANSETRON 4 MG/2 ML INJ IV PRN ×2 (03:33→20:49)
[2020-03-14] MEDS ORDERED: SODIUM CHLORIDE 0.9% 1000 ML 1,000 ML IV SCH (07:30)
[2020-03-14] MEDS: PANTOPRAZOLE 40 MG INJ IV SCH ×2 (09:30→21:09)
[2020-03-14] MEDS ORDERED: ONDANSETRON 4 MG/2 ML INJ ONE (09:47)
[2020-03-14] MEDS ORDERED: LIDOCAINE JELLY (2%) 5 ML TOPICAL ONE (09:48)
[2020-03-14] MEDS ORDERED: KETAMINE/STERILE WATER 50 MG/ML SYRINGE ONE (09:48)
[2020-03-14] MEDS ORDERED: propofoL 200 MG/20 ML VIAL IV ONE ×3 (09:48→09:49)
[2020-03-14] MEDS ORDERED: fentaNYL 100 MCG/2 ML INJ ONE (09:48)
[2020-03-14] MEDS ORDERED: SODIUM CHLORIDE 0.9% 1000 ML 1,000 ML ONE (10:05)
--- NOTE | 2020-03-14 10:16 | Anesthesia Day of Surgery ---
Anesthesia Day of Surgery - Day of Surgery Patient Examined: Yes Patient H&P Reviewed: Yes Patient is NPO: Yes
--- NOTE | 2020-03-14 10:47 | Operative Report ---
Operative Report Operative Report: Date:03/14/2020 Pre procedure diagnosis:hematemesis, GI bleed Post procedure diagnosis:gastric body ulcer, esophageal lesion, gastritis Procedure: Esophagogastroduodenoscopy with biopsies Endoscopist: Kenneth Mcarthur MD Medications: Per anesthesia- see separate records for details Complications:none Estimated blood loss: None After careful discussion of the nature and purpose of the procedure, details of the technique, risks, benefits and alternatives, the patient gave consent. The patient was placed in the left lateral decubitus position and medicated by anesthesia- see separate records for details. The tip of the olympus video upper scope was passed per orum under direct view through the mouth and into the esophagus, stomach and duodenum. The scope was advanced to the secondportion of the duodenum without difficulty. Thesecond portion of the duodenum wasnormal. The bulb revealed normal findings. The scope was withdrawn back into the stomach and the stomach gently insufflated with air. The antrum revealed atrophic mucosa. Biopsies were obtained. The gastric body showed a large cratered ulcer at least 4-5 cm with heaped up edges involving about 50% of the circumference on greater curve. No signs of bleeding noted. Biopsies were obtained. The scope was then retroflexed and partially withdrawn to inspect the proximal stomach. The cardia and fundus were normal. The scope was then withdrawn in the forward view. The EG junction was at 40 cm. There was a small 6-7 mm polypoid possible submucosal lesion in the distal esophagus. Rest of the esophagus was normal. The procedure was well tolerated and the patient was observed in the GI recovery unit. IMPRESSION: 1. Antral atrophic gastritis. Bx obtained. 2. A large cratered ulcer about 4-5 cm without bleeding signs in the gastric body. Cannot rule out underlying malignancy. Biopsies were obtained. 3. A small esophageal lesion in the distal esophagus. Question of submucosal lesion. 4. Normal duodenum exam. Plan: 1. Resume clear liquids. 2. Continue with protonix IV and switch to PO tomorrow if H/H stable and no bleeding signs. Will need PPI bid for at least 6 weeks. 3. Monitor H/H serially and transfuse as needed. 4. Follow up pathology results. 5. Will need repeat EGD as outpatient based on pathology given the extent of the ulcer. Possible outpatient EUS for esophageal lesion. 6. Will follow. Kenneth Mcarthur MD (Jenny) [facility]
--- NOTE | 2020-03-14 11:50 | Progress Note ---
Assessment and Plan Assessment and plan: --Upper GI bleeding Current Visit: Yes Status: Acute Plan to address problem: No new episodes of bleeding GI evaluated patient underwent EGD findings as below s/p EGD IMPRESSION: 1. Antral atrophic gastritis. Bx obtained. 2. A large cratered ulcer about 4-5 cm without bleeding signs in the gastric body. Cannot rule out underlying malignancy. Biopsies were obtained. 3. A small esophageal lesion in the distal esophagus. Question of submucosal lesion. 4. Normal duodenum exam. Plan: 1. Resume clear liquids. 2. Continue with protonix IV and switch to PO tomorrow if H/H stable and no bleeding signs. Will need PPI bid for at least 6 weeks. 3. Monitor H/H serially and transfuse as needed. 4. Follow up pathology results. 5. Will need repeat EGD as outpatient based on pathology given the extent of the ulcer. Possible outpatient EUS for esophageal lesion. 6. Will follow. -- IDDM (insulin dependent diabetes mellitus) Current Visit: Yes Status: Chronic Plan to address problem: Insulin dosage adjusted Uncontrolled -- Hypertensive emergency Current Visit: Yes Status: Acute Plan to address problem: IV labetalol and Catapress patch atient is NPO --Hyponatremia; present on admission significant improvement, closely monitor electrolytes --Acute on chronic kidney disease 3; gentle hydration monitor, renal function avoid nephrotoxins -- Deep vein thrombosis (DVT) prophylaxis Current Visit: Yes Status: Acute No pharmacologic anticoagulation in view of GI bleeding Continue SCDs We will closely monitor the patient and adjust management as needed Patient is stable to be transferred out of MICU to the medical floor Possible discharge home tomorrow if patient is stable and cleared by GI Plan of care reviewed with the patient and his nurse History Interval history: Patient seen and examined at the bedside this morning Patient's chart and medications reviewed Patient underwent EGD today Findings noted No new complaints Vital signs reviewed Hospitalist Physical - Constitutional Vitals: Temp Pulse Resp BP Pulse Ox 98.3 F 84 10 L 171/91 100 03/14/20 08:00 03/14/20 09:11 03/14/20 09:11 03/14/20 09:11 03/14/20 09:11 General appearance: Present: no acute distress, well-nourished - EENT Eyes: Present: PERRL, EOM intact - Neck Neck: Present: supple, normal ROM - Respiratory Respiratory effort: normal Respiratory: bilateral: diminished, negative: rales, rhonchi, wheezing - Cardiovascular Rhythm: regular Heart Sounds: Present: S1 & S2 - Extremities Extremities: no ischemia, No edema - Abdominal General gastrointestinal: soft, non-tender, non-distended, normal bowel sounds - Integumentary Integumentary: Present: clear, warm - Psychiatric Psychiatric: appropriate mood/affect, cooperative - Neurologic Neurologic: CNII-XII intact, moves all extremities HEART Score - HEART Score Troponin: Troponin T 0.156 ng/mL (0.00-0.029) H* 03/13/20 06:36 Results - Labs CBC & Chem 7: 03/15/20 19:26 03/15/20 07:37 Labs: Laboratory Last Values WBC 6.5 K/mm3 (4.5-11.0) 03/13/20 04:57 RBC 2.93 M/mm3 (3.65-5.03) L 03/13/20 04:57 Hgb 7.6 gm/dl (11.8-15.2) L 03/13/20 17:36 Hct 21.2 % (35.5-45.6) L 03/13/20 17:36 MCV 70 fl (84-94) L 03/13/20 04:57 MCH 23 pg (28-32) L 03/13/20 04:57 MCHC 33 % (32-34) 03/13/20 04:57 RDW 16.1 % (13.2-15.2) H 03/13/20 04:57 Plt Count 507 K/mm3 (140-440) H 03/13/20 04:57 Lymph % (Auto) 23.8 % (13.4-35.0) 03/13/20 04:57 [place] % (Auto) 7.6 % (0.0-7.3) H 03/13/20 04:57 Eos % (Auto) 1.9 % (0.0-4.3) 03/13/20 04:57 Baso % (Auto) 2.0 % (0.0-1.8) H 03/13/20 04:57 Lymph # 1.5 K/mm3 (1.2-5.4) 03/13/20 04:57 [place] # 0.5 K/mm3 (0.0-0.8) 03/13/20 04:57 Eos # 0.1 K/mm3 (0.0-0.4) 03/13/20 04:57 Baso # 0.1 K/mm3 (0.0-0.1) 03/13/20 04:57 Seg Neutrophils % 64.7 % (40.0-70.0) 03/13/20 04:57 Seg Neutrophils # 4.2 K/mm3 (1.8-7.7) 03/13/20 04:57 APTT 31.5 Sec. (24.2-36.6) 03/13/20 06:36 VBG pH 7.390 (7.320-7.420) 03/13/20 04:57 Sodium 133 mmol/L (137-145) L 03/13/20 17:36 Potassium 3.6 mmol/L (3.6-5.0) 03/13/20 17:36 Chloride 96.4 mmol/L (98-107) L 03/13/20 17:36 Carbon Dioxide 25 mmol/L (22-30) 03/13/20 17:36 Anion Gap 15 mmol/L 03/13/20 17:36 BUN 33 mg/dL (9-20) H 03/13/20 17:36 Creatinine 1.7 mg/dL (0.8-1.3) H 03/13/20 17:36 Estimated GFR 54 ml/min 03/13/20 17:36 BUN/Creatinine Ratio 19 % 03/13/20 17:36 Glucose 339 mg/dL (75-100) H 03/13/20 17:36 POC Glucose 290 (70-105) H 03/14/20 06:00 Hemoglobin A1c 12.4 % (4-6) H 03/14/20 06:22 Lactic Acid 1.00 mmol/L (0.7-2.0) 03/13/20 06:36 Calcium 8.3 mg/dL (8.4-10.2) L 03/13/20 17:36 Magnesium 1.90 mg/dL (1.7-2.3) 03/13/20 06:36 Total Bilirubin 0.20 mg/dL (0.1-1.2) 03/13/20 06:36 Direct Bilirubin < 0.2 mg/dL (0-0.2) 03/13/20 06:36 AST 11 units/L (5-40) 03/13/20 06:36 ALT 13 units/L (7-56) 03/13/20 06:36 Alkaline Phosphatase 78 units/L (35-129) 03/13/20 06:36 Total Creatine Kinase 338 units/L (55-170) H 03/13/20 06:36 CK-MB (CK-2) 4.9 ng/mL (0.0-4.0) H 03/13/20 06:36 CK-MB (CK-2) Rel Index 1.4 (0-4) 03/13/20 06:36 Troponin T 0.156 ng/mL (0.00-0.029) H* 03/13/20 06:36 NT-Pro-B Natriuret Pep 1151 pg/mL (0-450) H 03/13/20 06:36 Total Protein 5.9 g/dL (6.3-8.2) L 03/13/20 06:36 Albumin 2.5 g/dL (3.9-5) L 03/13/20 06:36 Albumin/Globulin Ratio 0.7 % 03/13/20 06:36 Triglycerides 98 mg/dL (2-149) 03/13/20 06:36 Cholesterol 85 mg/dL (50-199) 03/13/20 06:36 LDL Cholesterol Direct 25 mg/dL (50-130) L 03/13/20 06:36 HDL Cholesterol 49 mg/dL (40-59) 03/13/20 06:36 Cholesterol/HDL Ratio 1.73 % 03/13/20 06:36 Lipase 61 units/L (13-60) H 03/13/20 06:36 Blood Type B POSITIVE 03/13/20 06:36 Antibody Screen Negative 03/13/20 06:36 Crossmatch See Detail 03/13/20 06:36 - Diagnostic Impressions Diagnostic Impressions: Echocardiogram 03/13/20 13:28 Transthoracic Echocardiogram Indication: Abnormal EKG BP: 171/81 HR: 81 Conclusions *Global left ventricular systolic function is normal. *The estimated ejection fraction is 60-65%. *Severe concentric left ventricular hypertrophy is observed. *There is trace of mitral regurgitation. *There is trace tricuspid regurgitation. Findings Left Ventricle: The left ventricular chamber size is normal. Severe concentric left ventricular hypertrophy is observed. Global left ventricular systolic function is normal. The estimated ejection fraction is 60-65%. Left Atrium: The left atrial chamber size is normal. Right Ventricle: The right ventricular cavity size is normal. The right ventricular global systolic function is normal. Right Atrium: The right atrial cavity size is normal. Aortic Valve: The aortic valve is trileaflet. The aortic valve leaflets are mildly thickened. There is no evidence of aortic regurgitation. There is no evidence of aortic stenosis. Mitral Valve: The mitral valve leaflets are mildly thickened. There is trace of mitral regurgitation. There is no evidence of mitral stenosis. Tricuspid Valve: There is trace tricuspid regurgitation. No pulmonary hypertension is noted. Pulmonic Valve: There is trace pulmonic regurgitation. Pericardium: There is no pericardial effusion. Aorta: There is no dilatation of the ascending aorta. There is no dilatation of the aortic root. Venous: The inferior vena cava is dilated. Measurements Chambers 2D Name Value Normal Range IVSd (2D) 1.78 cm (0.6 - 1.1) LVPWd (2D) 1.73 cm (0.6 - 1.1) LVIDd (2D) 4.84 cm (3.7 - 5.6) LVIDs (2D) 3.09 cm (2 - 3.8) LV FS (2D) 36.19 % - EF Teichholz (2D) 65.73 % - Ao root diameter (2D) 3.44 cm (2 - 3.7) Volumes/Mass Name Value Normal Range LA ESV SP 4CH (A/L) 27.34 ml - LA ESV SP 2CH (A/L) 48.81 ml - LA ESV BP (A/L) 36.85 ml - LA ESV BP (A/L) index 18.9 ml/m2 - LA ESV SP 4CH (MOD) 23.98 ml - LA ESV SP 2CH (MOD) 46.77 ml - LA ESV BP (MOD) 33.68 ml - LA ESV BP (MOD) index 17.27 ml/m2 - Diastolic/Systolic Function Name Value Normal Range MV E-wave Vmax 0.53 m/sec - MV deceleration time 217.01 msec - MV A-wave Vmax 0.66 m/sec - MV E:A ratio 0.79 ratio - Aortic Valve Name Value Normal Range AV Vmax 1.9 m/sec - AV VTI 29.89 cm - AV peak gradient 14.5 mmHg - AV mean gradient 5.88 mmHg - LVOT diameter 2.03 cm - LVOT Vmax 1.56 m/sec - LVOT VTI 26.9 cm - LVOT peak gradient 9.72 mmHg - LVOT mean gradient 4.99 mmHg - SV LVOT 87.35 ml - MADELAINE (continuity Vmax) 2.66 cm2 - MADELAINE (continuity VTI) 2.92 cm2 - Tricuspid Valve Name Value Normal Range IVC diameter 2.33 cm (1.2 - 2.3) Pulmonic Valve/Qp:Qs Name Value Normal Range PV Vmax 1.12 m/sec - PV peak gradient 5 mmHg - PV acceleration time 140.82 msec - Herrera/IV: Voiding Method Toilet IV Catheter Type [Right Hand] Peripheral IV Active Medications - Current Medications Current Medications: Generic Name Dose Route Start Last Admin Trade Name Williamq PRN Reason Stop Dose Admin Clonidine HCl 0.2 mg 03/13/20 18:00 03/13/20 18:12 Catapres-Tts Patch TD 0.2 mg Mo DIMITRIOS Administration Insulin Human Lispro 0 unit 03/13/20 15:00 03/14/20 11:19 Humalog SUB-Q 10 unit Q4H DIMITRIOS Administration Protocol Labetalol HCl 20 mg 03/13/20 18:56 03/14/20 08:18 Labetalol IV 20 mg Q3H PRN Administration SBP >160 Ondansetron HCl 4 mg 03/13/20 12:35 03/14/20 03:33 Zofran IV 4 mg Q8H PRN Administration Nausea And Vomiting Pantoprazole Sodium 40 mg 03/13/20 13:00 03/14/20 09:30 Protonix IV 40 mg BID DIMITRIOS Administration
--- NOTE | 2020-03-14 12:37 | Progress Note ---
Assessment and Plan Elevated troponin, nonspecific Echo shows severe LVH, normal LVEF 60-65%. 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 No cardiac complaints. Objective Vital Signs Temp Pulse Pulse Resp BP Pulse Ox 03/14/20 09:55 97.7 F 80 14 122/61 100 03/14/20 09:11 84 10 L 171/91 100 03/14/20 09:00 82 26 H 167/107 100 03/14/20 08:51 160/102 100 03/14/20 08:41 81 11 L 160/102 100 03/14/20 08:30 82 11 L 171/91 99 03/14/20 08:21 83 13 160/102 100 03/14/20 08:18 81 160/102 03/14/20 08:11 136/74 100 03/14/20 08:00 98.3 F 82 81 13 172/102 100 03/14/20 07:51 177/112 100 03/14/20 07:41 177/112 100 03/14/20 07:30 177/112 100 03/14/20 07:21 145/105 100 03/14/20 07:11 145/105 99 03/14/20 07:00 136/74 100 03/14/20 06:51 142/100 99 03/14/20 06:41 142/100 99 03/14/20 06:30 145/105 100 03/14/20 06:21 151/95 100 03/14/20 06:11 151/95 100 03/14/20 06:00 142/100 100 03/14/20 05:51 152/96 100 03/14/20 05:41 152/96 100 03/14/20 05:30 151/95 100 03/14/20 05:21 85 11 L 146/87 100 03/14/20 05:11 89 15 146/87 100 03/14/20 05:00 152/96 100 03/14/20 04:51 87 11 L 115/78 100 03/14/20 04:50 87 16 100 03/14/20 04:41 88 13 115/78 99 03/14/20 04:30 83 13 146/87 100 03/14/20 04:21 82 8 L 115/78 100 03/14/20 04:11 133/77 100 03/14/20 04:00 98.7 F 82 133/77 99 03/14/20 03:51 84 12 148/86 100 03/14/20 03:41 82 10 L 148/86 100 03/14/20 03:30 82 13 148/86 99 03/14/20 03:21 82 13 148/84 100 03/14/20 03:11 83 7 L 148/84 100 03/14/20 03:00 82 9 L 148/84 100 03/14/20 02:51 83 11 L 142/78 100 03/14/20 02:41 83 9 L 142/78 100 03/14/20 02:30 81 10 L 142/78 100 03/14/20 02:21 141/87 100 03/14/20 02:11 84 10 L 141/87 100 03/14/20 02:00 82 22 141/87 100 03/14/20 01:51 81 13 162/102 100 03/14/20 01:41 80 12 162/102 100 03/14/20 01:30 79 12 162/102 100 03/14/20 01:21 78 11 L 178/111 100 03/14/20 01:11 80 12 178/111 100 03/14/20 01:10 80 178/111 03/14/20 01:01 86 11 L 171/103 100 03/14/20 00:50 173/99 100 03/14/20 00:43 82 03/14/20 00:40 178/107 100 03/14/20 00:37 82 16 100 03/14/20 00:30 82 12 178/108 100 03/14/20 00:20 82 13 165/104 100 03/14/20 00:10 81 11 L 171/104 100 03/14/20 00:00 98.4 F 81 10 L 163/101 100 03/13/20 23:59 81 12 152/100 100 03/13/20 23:50 82 12 149/99 100 03/13/20 23:40 84 14 155/102 100 03/13/20 23:30 83 13 158/99 100 03/13/20 23:20 81 11 L 149/97 100 03/13/20 23:10 82 12 151/100 100 03/13/20 23:00 81 12 158/99 100 03/13/20 22:50 84 10 L 162/102 100 03/13/20 22:40 155/102 100 03/13/20 22:30 164/107 100 03/13/20 22:20 160/101 100 03/13/20 22:10 155/102 100 03/13/20 22:00 136/86 100 03/13/20 21:50 92 H 15 170/89 99 03/13/20 21:41 91 H 9 L 158/85 98 03/13/20 21:30 83 13 150/89 100 03/13/20 21:20 84 9 L 156/99 100 03/13/20 21:10 162/96 100 03/13/20 21:01 89 17 122/72 100 03/13/20 21:00 85 18 100 03/13/20 20:50 89 19 143/97 100 03/13/20 20:40 82 13 141/96 100 03/13/20 20:30 82 13 146/96 03/13/20 20:20 82 14 151/99 100 03/13/20 20:10 82 11 L 162/107 03/13/20 20:00 97.9 F 87 10 L 141/97 100 03/13/20 19:50 158/98 100 03/13/20 19:40 146/90 100 03/13/20 19:30 141/93 100 03/13/20 19:20 139/90 100 03/13/20 19:10 144/92 100 03/13/20 19:00 140/92 100 03/13/20 18:50 161/101 100 03/13/20 18:40 161/103 100 03/13/20 18:30 160/97 100 03/13/20 18:20 162/105 100 03/13/20 18:10 161/104 100 03/13/20 18:00 149/98 03/13/20 17:50 164/98 100 03/13/20 17:40 169/107 100 03/13/20 17:30 144/93 100 03/13/20 17:20 81 11 L 139/92 100 03/13/20 17:10 80 13 138/89 100 08/24/20 17:00 80 12 135/87 100 03/13/20 16:50 80 12 134/90 100 03/13/20 16:40 79 10 L 150/94 100 03/13/20 16:30 80 9 L 145/95 100 03/13/20 16:29 80 160/109 03/13/20 16:20 86 11 L 167/111 100 03/13/20 16:10 83 15 171/114 99 03/13/20 16:01 168/116 100 03/13/20 16:00 98.3 F 83 15 100 03/13/20 15:51 196/129 100 03/13/20 15:41 89 13 154/100 100 03/13/20 15:31 196/129 100 03/13/20 15:20 196/129 03/13/20 15:18 154/100 89 03/13/20 15:15 97.7 F 96 H 14 196/129 97 03/13/20 14:11 154/100 100 03/13/20 14:00 154/100 100 03/13/20 13:50 170/98 100 03/13/20 13:41 170/98 100 03/13/20 13:30 170/98 100 03/13/20 13:21 82 13 170/98 100 03/13/20 13:11 80 11 L 170/98 100 03/13/20 13:00 79 11 L 170/98 100 03/13/20 12:51 82 13 101/55 100 03/13/20 12:41 78 12 101/55 99 - Physical Examination General: No Apparent Distress HEENT: Positive: PERRL Cardiac: Positive: Reg Rate and Rhythm Lungs: Positive: Decreased Breath Sounds Neuro: Positive: Grossly Intact - Labs and Meds CBC 03/13/20 Range/Units 17:36 Hgb 7.6 L (11.8-15.2) gm/dl Hct 21.2 L (35.5-45.6) % Comprehensive Metabolic Panel 03/13/20 Range/Units 17:36 Sodium 133 L (137-145) mmol/L Potassium 3.6 (3.6-5.0) mmol/L Chloride 96.4 L (98-107) mmol/L Carbon Dioxide 25 (22-30) mmol/L BUN 33 H (9-20) mg/dL Creatinine 1.7 H (0.8-1.3) mg/dL Glucose 339 H (75-100) mg/dL Calcium 8.3 L (8.4-10.2) mg/dL
--- NOTE | 2020-03-14 13:35 | Post Anesthesia Evaluation ---
- Post Anesthesia Evaluation Patient Participated: Yes Airway Patent: Yes Stable Respiratory Function: Yes Nausea/Vomiting: No Temp > 96.8F: Yes Pain Manageable: Yes Adequeate Hydration: Yes Anesthesia Complications: No
[2020-03-14 15:54] LABS: Basophils # (Auto) 0.1 K/mm3 (0.0-0.1); Basophils % (Auto) 1.9 % (0.0-1.8); Eosinophils # (Auto) 0.1 K/mm3 (0.0-0.4); Eosinophils % (Auto) 1.9 % (0.0-4.3); Hematocrit 21.5 % (35.5-45.6); Hemoglobin 7.1 gm/dl (11.8-15.2); Lymphocytes # (Auto) 1.6 K/mm3 (1.2-5.4); Lymphocytes % (Auto) 22.5 % (13.4-35.0); Mean Corpuscular HGB Conc 33 % (32-34); Mean Corpuscular Volume 71 fl (84-94); Monocytes # (Auto) 0.6 K/mm3 (0.0-0.8); Monocytes % (Auto) 8.4 % (0.0-7.3); Platelet Count 485 K/mm3 (140-440); Red Blood Count 3.03 M/mm3 (3.65-5.03); Red Cell Distribution Width 17.2 % (13.2-15.2)
[2020-03-14 16:13] LABS: Albumin 2.7 g/dL (3.9-5); Calcium 8.5 mg/dL (8.4-10.2)
[2020-03-14] MEDS: ACETAMINOPHEN 325 MG TAB PO PRN (20:48)
[2020-03-14 23:19] LABS: Hematocrit 23.1 % (35.5-45.6); Hemoglobin 7.7 gm/dl (11.8-15.2)
[2020-03-15] MEDS: INSULIN LISPRO 100 UNIT/ML VIAL 3 mL SUB-Q SCH ×4 (00:18→11:30)
[2020-03-15 08:00] LABS: Basophils # (Auto) 0.1 K/mm3 (0.0-0.1); Basophils % (Auto) 1.4 % (0.0-1.8); Eosinophils # (Auto) 0.2 K/mm3 (0.0-0.4); Eosinophils % (Auto) 2.2 % (0.0-4.3); Hematocrit 20.9 % (35.5-45.6); Lymphocytes # (Auto) 2.3 K/mm3 (1.2-5.4); Lymphocytes % (Auto) 28.4 % (13.4-35.0); Mean Corpuscular HGB Conc 33 % (32-34); Mean Corpuscular Volume 71 fl (84-94); Monocytes # (Auto) 0.6 K/mm3 (0.0-0.8); Monocytes % (Auto) 7.1 % (0.0-7.3); Platelet Count 488 K/mm3 (140-440); Red Blood Count 2.94 M/mm3 (3.65-5.03); Red Cell Distribution Width 17.1 % (13.2-15.2)
[2020-03-15 08:34] LABS: Albumin 2.7 g/dL (3.9-5); Calcium 8.5 mg/dL (8.4-10.2)
[2020-03-15] MEDS ORDERED: SODIUM CHLORIDE 0.9% 500 ML 500 ML IV NR (09:46)
--- NOTE | 2020-03-15 09:48 | Progress Note ---
Assessment and Plan Assessment and plan: --Anemia; acute blood loss Hemoglobin 7.0, transfuse 1 unit PRBC Monitor H&H, and DC home this evening if stable --Upper GI bleeding Current Visit: Yes Status: Acute . Plan to address problem: No new episodes of bleeding GI evaluated patient underwent EGD findings as below s/p EGD IMPRESSION: 1. Antral atrophic gastritis. Bx obtained. 2. A large cratered ulcer about 4-5 cm without bleeding signs in the gastric body. Cannot rule out underlying malignancy. Biopsies were obtained. 3. A small esophageal lesion in the distal esophagus. Question of submucosal lesion. 4. Normal duodenum exam. Plan: 1. Resume clear liquids. 2. Continue with protonix IV and switch to PO tomorrow if H/H stable and no bleeding signs. Will need PPI bid for at least 6 weeks. 3. Monitor H/H serially and transfuse as needed. 4. Follow up pathology results. 5. Will need repeat EGD as outpatient based on pathology given the extent of the ulcer. Possible outpatient EUS for esophageal lesion. 6. Will follow. -- IDDM (insulin dependent diabetes mellitus) Current Visit: Yes Status: Chronic Plan to address problem: Insulin dosage adjusted Uncontrolled -- Hypertensive emergency Current Visit: Yes Status: Acute Plan to address problem: IV labetalol and Catapress patch atient is NPO --Acute on chronic kidney disease 3; gentle hydration monitor, renal function avoid nephrotoxins --Hyponatremia; present on admission significant improvement, closely monitor electrolytes Sodium today is 136 -- Deep vein thrombosis (DVT) prophylaxis Current Visit: Yes Status: Acute No pharmacologic anticoagulation in view of GI bleeding Continue SCDs Hospitalist Physical - Constitutional Vitals: Temp Pulse Resp BP Pulse Ox 98.6 F 85 20 143/95 100 03/15/20 05:24 03/15/20 05:24 03/15/20 05:24 03/15/20 05:24 03/15/20 05:24 General appearance: Present: no acute distress, well-nourished HEART Score - HEART Score Troponin: Troponin T 0.156 ng/mL (0.00-0.029) H* 03/13/20 06:36 Results - Labs CBC & Chem 7: 03/15/20 19:26 03/15/20 07:37 Labs: Laboratory Last Values WBC 8.2 K/mm3 (4.5-11.0) 03/15/20 07:37 RBC 2.94 M/mm3 (3.65-5.03) L 03/15/20 07:37 Hgb 7.0 gm/dl (11.8-15.2) L 03/15/20 07:37 Hct 20.9 % (35.5-45.6) L 03/15/20 07:37 MCV 71 fl (84-94) L 03/15/20 07:37 MCH 24 pg (28-32) L 03/15/20 07:37 MCHC 33 % (32-34) 03/15/20 07:37 RDW 17.1 % (13.2-15.2) H 03/15/20 07:37 Plt Count 488 K/mm3 (140-440) H 03/15/20 07:37 Lymph % (Auto) 28.4 % (13.4-35.0) 03/15/20 07:37 [place] % (Auto) 7.1 % (0.0-7.3) 03/15/20 07:37 Eos % (Auto) 2.2 % (0.0-4.3) 03/15/20 07:37 Baso % (Auto) 1.4 % (0.0-1.8) 03/15/20 07:37 Lymph # 2.3 K/mm3 (1.2-5.4) 03/15/20 07:37 [place] # 0.6 K/mm3 (0.0-0.8) 03/15/20 07:37 Eos # 0.2 K/mm3 (0.0-0.4) 03/15/20 07:37 Baso # 0.1 K/mm3 (0.0-0.1) 03/15/20 07:37 Seg Neutrophils % 60.9 % (40.0-70.0) 03/15/20 07:37 Seg Neutrophils # 5.0 K/mm3 (1.8-7.7) 03/15/20 07:37 APTT 31.5 Sec. (24.2-36.6) 03/13/20 06:36 VBG pH 7.390 (7.320-7.420) 03/13/20 04:57 Sodium 136 mmol/L (137-145) L 03/15/20 07:37 Potassium 3.7 mmol/L (3.6-5.0) 03/15/20 07:37 Chloride 97.8 mmol/L (98-107) L 03/15/20 07:37 Carbon Dioxide 25 mmol/L (22-30) 03/15/20 07:37 Anion Gap 17 mmol/L 03/15/20 07:37 BUN 26 mg/dL (9-20) H 03/15/20 07:37 Creatinine 1.8 mg/dL (0.8-1.3) H 03/15/20 07:37 Estimated GFR 51 ml/min 03/15/20 07:37 BUN/Creatinine Ratio 14 % 03/15/20 07:37 Glucose 262 mg/dL (75-100) H 03/15/20 07:37 POC Glucose 256 (70-105) H 03/15/20 08:09 Hemoglobin A1c 12.4 % (4-6) H 03/14/20 06:22 Lactic Acid 1.00 mmol/L (0.7-2.0) 03/13/20 06:36 Calcium 8.5 mg/dL (8.4-10.2) 03/15/20 07:37 Magnesium 1.90 mg/dL (1.7-2.3) 03/13/20 06:36 Total Bilirubin 0.30 mg/dL (0.1-1.2) 03/15/20 07:37 Direct Bilirubin < 0.2 mg/dL (0-0.2) 03/13/20 06:36 AST 13 units/L (5-40) 03/15/20 07:37 ALT 11 units/L (7-56) 03/15/20 07:37 Alkaline Phosphatase 68 units/L (35-129) 03/15/20 07:37 Total Creatine Kinase 338 units/L (55-170) H 03/13/20 06:36 CK-MB (CK-2) 4.9 ng/mL (0.0-4.0) H 03/13/20 06:36 CK-MB (CK-2) Rel Index 1.4 (0-4) 03/13/20 06:36 Troponin T 0.156 ng/mL (0.00-0.029) H* 03/13/20 06:36 NT-Pro-B Natriuret Pep 1151 pg/mL (0-450) H 03/13/20 06:36 Total Protein 5.9 g/dL (6.3-8.2) L 03/15/20 07:37 Albumin 2.7 g/dL (3.9-5) L 03/15/20 07:37 Albumin/Globulin Ratio 0.8 % 03/15/20 07:37 Triglycerides 98 mg/dL (2-149) 03/13/20 06:36 Cholesterol 85 mg/dL (50-199) 03/13/20 06:36 LDL Cholesterol Direct 25 mg/dL (50-130) L 03/13/20 06:36 HDL Cholesterol 49 mg/dL (40-59) 03/13/20 06:36 Cholesterol/HDL Ratio 1.73 % 03/13/20 06:36 Lipase 61 units/L (13-60) H 03/13/20 06:36 Blood Type B POSITIVE 03/13/20 06:36 Antibody Screen Negative 03/13/20 06:36 Crossmatch See Detail 03/13/20 06:36 - Diagnostic Impressions Diagnostic Impressions: Echocardiogram 03/13/20 13:28 Transthoracic Echocardiogram Indication: Abnormal EKG BP: 171/81 HR: 81 Conclusions *Global left ventricular systolic function is normal. *The estimated ejection fraction is 60-65%. *Severe concentric left ventricular hypertrophy is observed. *There is trace of mitral regurgitation. *There is trace tricuspid regurgitation. Findings Left Ventricle: The left ventricular chamber size is normal. Severe concentric left ventricular hypertrophy is observed. Global left ventricular systolic function is normal. The estimated ejection fraction is 60-65%. Left Atrium: The left atrial chamber size is normal. Right Ventricle: The right ventricular cavity size is normal. The right ventricular global systolic function is normal. Right Atrium: The right atrial cavity size is normal. Aortic Valve: The aortic valve is trileaflet. The aortic valve leaflets are mildly thickened. There is no evidence of aortic regurgitation. There is no evidence of aortic stenosis. Mitral Valve: The mitral valve leaflets are mildly thickened. There is trace of mitral regurgitation. There is no evidence of mitral stenosis. Tricuspid Valve: There is trace tricuspid regurgitation. No pulmonary hypertension is noted. Pulmonic Valve: There is trace pulmonic regurgitation. Pericardium: There is no pericardial effusion. Aorta: There is no dilatation of the ascending aorta. There is no dilatation of the aortic root. Venous: The inferior vena cava is dilated. Measurements Chambers 2D Name Value Normal Range IVSd (2D) 1.78 cm (0.6 - 1.1) LVPWd (2D) 1.73 cm (0.6 - 1.1) LVIDd (2D) 4.84 cm (3.7 - 5.6) LVIDs (2D) 3.09 cm (2 - 3.8) LV FS (2D) 36.19 % - EF Teichholz (2D) 65.73 % - Ao root diameter (2D) 3.44 cm (2 - 3.7) Volumes/Mass Name Value Normal Range LA ESV SP 4CH (A/L) 27.34 ml - LA ESV SP 2CH (A/L) 48.81 ml - LA ESV BP (A/L) 36.85 ml - LA ESV BP (A/L) index 18.9 ml/m2 - LA ESV SP 4CH (MOD) 23.98 ml - LA ESV SP 2CH (MOD) 46.77 ml - LA ESV BP (MOD) 33.68 ml - LA ESV BP (MOD) index 17.27 ml/m2 - Diastolic/Systolic Function Name Value Normal Range MV E-wave Vmax 0.53 m/sec - MV deceleration time 217.01 msec - MV A-wave Vmax 0.66 m/sec - MV E:A ratio 0.79 ratio - Aortic Valve Name Value Normal Range AV Vmax 1.9 m/sec - AV VTI 29.89 cm - AV peak gradient 14.5 mmHg - AV mean gradient 5.88 mmHg - LVOT diameter 2.03 cm - LVOT Vmax 1.56 m/sec - LVOT VTI 26.9 cm - LVOT peak gradient 9.72 mmHg - LVOT mean gradient 4.99 mmHg - SV LVOT 87.35 ml - MADELAINE (continuity Vmax) 2.66 cm2 - MADELAINE (continuity VTI) 2.92 cm2 - Tricuspid Valve Name Value Normal Range IVC diameter 2.33 cm (1.2 - 2.3) Pulmonic Valve/Qp:Qs Name Value Normal Range PV Vmax 1.12 m/sec - PV peak gradient 5 mmHg - PV acceleration time 140.82 msec - Herrera/IV: Voiding Method Toilet IV Catheter Type [Right Hand] Peripheral IV Active Medications - Current Medications Current Medications: Generic Name Dose Route Start Last Admin Trade Name Freq PRN Reason Stop Dose Admin Acetaminophen 650 mg 03/14/20 20:40 03/14/20 20:48 Tylenol PO 650 mg Q6H PRN Administration Pain, Mild (1-3) Clonidine HCl 0.2 mg 03/13/20 18:00 03/13/20 18:12 Catapres-Tts Patch TD 0.2 mg Mo DIMITRIOS Administration Sodium Chloride 500 mls @ 0 mls/hr 03/15/20 09:46 Nacl 0.9% 500 Ml IV 03/15/20 09:47 ONCE ONE As Directed Insulin Human Lispro 0 unit 03/13/20 15:00 03/15/20 06:22 Humalog SUB-Q 6 unit Q4H DIMITRIOS Administration Protocol Labetalol HCl 20 mg 03/13/20 18:56 03/14/20 23:05 Labetalol IV 20 mg Q3H PRN Administration SBP >160 Ondansetron HCl 4 mg 03/13/20 12:35 03/14/20 20:49 Zofran IV 4 mg Q8H PRN Administration Nausea And Vomiting Pantoprazole Sodium 40 mg 03/15/20 10:00 Protonix PO BID DIMITRIOS
[2020-03-15] MEDS ORDERED: PANTOPRAZOLE 40 MG TAB PO SCH (10:00)
--- NOTE | 2020-03-15 11:16 | Progress Note ---
Assessment and Plan Elevated troponin, nonspecific Echo shows severe LVH, normal LVEF 60-65%. 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 We transition to oral medications when he is able to tolerate oral intake. Subjective Date of service: 03/15/20 Interval history: No cardiac events reported. Still with abdominal pain and vomiting this morning. Objective Vital Signs Temp Pulse Pulse Resp BP Pulse Ox 03/15/20 05:24 98.6 F 85 20 143/95 100 03/15/20 00:00 18 03/14/20 23:56 98.5 F 80 20 137/86 99 03/14/20 22:09 98.4 F 80 20 171/107 100 03/14/20 16:59 76 16 100 03/14/20 16:31 74 19 133/84 100 03/14/20 16:20 74 17 144/86 99 03/14/20 16:11 75 18 134/80 100 03/14/20 16:01 78 17 150/88 99 03/14/20 16:00 98.4 F 78 98 H 17 99 03/14/20 15:50 81 29 H 149/93 03/14/20 15:41 79 31 H 161/96 100 03/14/20 15:31 77 27 H 140/82 100 03/14/20 15:20 79 15 124/75 99 03/14/20 15:11 79 32 H 123/74 99 03/14/20 15:01 79 23 130/77 98 03/14/20 14:51 81 17 121/68 100 03/14/20 14:41 79 16 115/71 100 03/14/20 14:31 79 13 115/76 100 03/14/20 14:20 79 27 H 120/76 100 03/14/20 14:11 79 33 H 130/81 100 03/14/20 14:01 80 19 117/75 100 03/14/20 13:50 81 19 125/82 03/14/20 13:41 81 14 131/84 03/14/20 13:30 81 18 138/85 100 03/14/20 13:20 81 22 123/80 100 03/14/20 13:11 83 15 127/78 100 03/14/20 13:01 81 21 134/89 03/14/20 12:50 83 28 H 148/91 03/14/20 12:40 84 23 148/96 03/14/20 12:30 85 31 H 139/87 03/14/20 12:20 85 27 H 121/88 03/14/20 12:11 89 12 139/92 03/14/20 12:01 96 H 19 153/94 03/14/20 12:00 98.1 F 79 96 H 19 161/96 03/14/20 11:50 90 9 L 136/90 03/14/20 11:41 90 18 139/75 03/14/20 11:31 84 14 153/82 03/14/20 11:21 84 10 L 151/81 100 - Physical Examination General: No Apparent Distress HEENT: Positive: PERRL Neck: Positive: trachea midline Cardiac: Positive: Reg Rate and Rhythm Neuro: Positive: Grossly Intact - Labs and Meds Cardiac Enzymes 03/14/20 03/15/20 Range/Units 15:41 07:37 AST 11 13 (5-40) units/L CBC 03/14/20 03/14/20 03/15/20 Range/Units 15:41 22:54 07:37 WBC 7.1 8.2 (4.5-11.0) K/mm3 RBC 3.03 L 2.94 L (3.65-5.03) M/mm3 Hgb 7.1 L 7.7 L 7.0 L (11.8-15.2) gm/dl Hct 21.5 L 23.1 L 20.9 L (35.5-45.6) % Plt Count 485 H 488 H (140-440) K/mm3 Lymph # 1.6 2.3 (1.2-5.4) K/mm3 [place] # 0.6 0.6 (0.0-0.8) K/mm3 Eos # 0.1 0.2 (0.0-0.4) K/mm3 Baso # 0.1 0.1 (0.0-0.1) K/mm3 Comprehensive Metabolic Panel 03/14/20 03/15/20 Range/Units 15:41 07:37 Sodium 133 L 136 L (137-145) mmol/L Potassium 3.8 3.7 (3.6-5.0) mmol/L Chloride 95.7 L 97.8 L (98-107) mmol/L Carbon Dioxide 24 25 (22-30) mmol/L BUN 31 H 26 H (9-20) mg/dL Creatinine 2.1 H 1.8 H (0.8-1.3) mg/dL Glucose 301 H 262 H (75-100) mg/dL Calcium 8.5 8.5 (8.4-10.2) mg/dL AST 11 13 (5-40) units/L ALT 11 11 (7-56) units/L Alkaline Phosphatase 68 68 (35-129) units/L Total Protein 5.8 L 5.9 L (6.3-8.2) g/dL Albumin 2.7 L 2.7 L (3.9-5) g/dL
[2020-03-15] MEDS: ONDANSETRON 4 MG/2 ML INJ IV PRN (11:35)
[2020-03-15] MEDS: hydrALAZINE 25 MG TAB PO SCH ×2 (12:22→14:59)
--- NOTE | 2020-03-15 13:27 | Gastroenterology Progress Note ---
Assessment and Plan - Patient Problems (1) Upper GI bleeding Current Visit: Yes Status: Acute Plan to address problem: # Hematemesis # Upper GI bleed - Hgb down from earlier this month. down to 6.7. s/p 1 unit of PRBC. - h/o ulcers per patient report - hypertensive. - s/p EGD on 03/14/2020 showing a large cratered ulcer in the gastric body and esophageal lesion. Path showing gastritis and metaplasia. no signs of dysplasia. - no signs of recurrent active bleeding. - H/H trended down today to 7. planned for 1 unit of PRBC transfusion. Plan: - Advance diet as tolerated. - continue with protonix bid for at least 6 weeks. - monitor H/H serially and transfuse as needed. - Will need repeat EGD as outpatient based on pathology given the extent of the ulcer. Possible outpatient EUS for esophageal lesion. - Will follow. Subjective Date of service: 03/15/20 Interval history: patient underwent EGD yesterday. Reports having vomiting after taking protonix and tylenol pills. Objective - Constitutional Vitals: Temp Pulse Resp BP Pulse Ox 98.4 F 87 22 186/106 100 03/15/20 11:08 03/15/20 11:08 03/15/20 11:08 03/15/20 12:22 03/15/20 11:08 General appearance: no acute distress - EENT Eyes: EOM intact ENT: hearing intact - Respiratory Respiratory effort: normal - Cardiovascular Rhythm: regular Heart Sounds: Present: S1 & S2 - Gastrointestinal General gastrointestinal: Present: soft, non-tender, non-distended - Neurologic Neurological: alert and oriented x3 - Labs CBC & Chem 7: 03/15/20 07:37 03/15/20 07:37 Labs: Laboratory Results - last 24 hr 03/13/20 03/14/20 03/14/20 06:36 15:41 15:41 WBC 7.1 RBC 3.03 L Hgb 7.1 L Hct 21.5 L MCV 71 L MCH 24 L MCHC 33 RDW 17.2 H Plt Count 485 H Lymph % (Auto) 22.5 [place] % (Auto) 8.4 H Eos % (Auto) 1.9 Baso % (Auto) 1.9 H Lymph # 1.6 [place] # 0.6 Eos # 0.1 Baso # 0.1 Seg Neutrophils % 65.3 Seg Neutrophils # 4.7 Sodium 133 L Potassium 3.8 Chloride 95.7 L Carbon Dioxide 24 Anion Gap 17 BUN 31 H Creatinine 2.1 H Estimated GFR 42 BUN/Creatinine Ratio 15 Glucose 301 H POC Glucose Calcium 8.5 Total Bilirubin 0.30 AST 11 ALT 11 Alkaline Phosphatase 68 Total Protein 5.8 L Albumin 2.7 L Albumin/Globulin Ratio 0.9 Blood Type B POSITIVE Antibody Screen Negative Crossmatch See Detail 03/14/20 03/14/20 03/14/20 16:06 20:19 22:54 WBC RBC Hgb 7.7 L Hct 23.1 L MCV MCH MCHC RDW Plt Count Lymph % (Auto) [place] % (Auto) Eos % (Auto) Baso % (Auto) Lymph # [place] # Eos # Baso # Seg Neutrophils % Seg Neutrophils # Sodium Potassium Chloride Carbon Dioxide Anion Gap BUN Creatinine Estimated GFR BUN/Creatinine Ratio Glucose POC Glucose 342 H 185 H Calcium Total Bilirubin AST ALT Alkaline Phosphatase Total Protein Albumin Albumin/Globulin Ratio Blood Type Antibody Screen Crossmatch 03/15/20 03/15/20 03/15/20 00:10 05:38 07:37 WBC 8.2 RBC 2.94 L Hgb 7.0 L Hct 20.9 L MCV 71 L MCH 24 L MCHC 33 RDW 17.1 H Plt Count 488 H Lymph % (Auto) 28.4 [place] % (Auto) 7.1 Eos % (Auto) 2.2 Baso % (Auto) 1.4 Lymph # 2.3 [place] # 0.6 Eos # 0.2 Baso # 0.1 Seg Neutrophils % 60.9 Seg Neutrophils # 5.0 Sodium Potassium Chloride Carbon Dioxide Anion Gap BUN Creatinine Estimated GFR BUN/Creatinine Ratio Glucose POC Glucose 114 H 275 H Calcium Total Bilirubin AST ALT Alkaline Phosphatase Total Protein Albumin Albumin/Globulin Ratio Blood Type Antibody Screen Crossmatch 03/15/20 03/15/20 03/15/20 07:37 08:09 11:25 WBC RBC Hgb Hct MCV MCH MCHC RDW Plt Count Lymph % (Auto) [place] % (Auto) Eos % (Auto) Baso % (Auto) Lymph # [place] # Eos # Baso # Seg Neutrophils % Seg Neutrophils # Sodium 136 L Potassium 3.7 Chloride 97.8 L Carbon Dioxide 25 Anion Gap 17 BUN 26 H Creatinine 1.8 H Estimated GFR 51 BUN/Creatinine Ratio 14 Glucose 262 H POC Glucose 256 H 342 H Calcium 8.5 Total Bilirubin 0.30 AST 13 ALT 11 Alkaline Phosphatase 68 Total Protein 5.9 L Albumin 2.7 L Albumin/Globulin Ratio 0.8 Blood Type Antibody Screen Crossmatch
[2020-03-15] MEDS ORDERED: NIFEdipine XL 60 MG TAB PO SCH (14:00)
[2020-03-15] MEDS ORDERED: INSULIN LISPRO 100 UNIT/ML VIAL 3 mL SUB-Q SCH (16:30)
[2020-03-15 17:24] VITALS: BP 156/100
[2020-03-15] MEDS ORDERED: ZOLPIDEM 5 MG TAB PO PRN (17:30)
[2020-03-15] MEDS: ACETAMINOPHEN 325 MG TAB PO PRN (19:15)
[2020-03-15 19:38] LABS: Basophils # (Auto) 0.1 K/mm3 (0.0-0.1); Eosinophils # (Auto) 0.2 K/mm3 (0.0-0.4); Eosinophils % (Auto) 2.6 % (0.0-4.3); Hematocrit 23.8 % (35.5-45.6); Hemoglobin 7.9 gm/dl (11.8-15.2); Lymphocytes # (Auto) 1.6 K/mm3 (1.2-5.4); Lymphocytes % (Auto) 22.6 % (13.4-35.0); Mean Corpuscular HGB Conc 33 % (32-34); Mean Corpuscular Volume 73 fl (84-94); Monocytes # (Auto) 0.6 K/mm3 (0.0-0.8); Monocytes % (Auto) 9.3 % (0.0-7.3); Platelet Count 458 K/mm3 (140-440); Red Blood Count 3.26 M/mm3 (3.65-5.03); Red Cell Distribution Width 18.6 % (13.2-15.2)
[2020-03-15] MEDS ORDERED: DOXAZOSIN 1 MG TAB PO SCH (22:00)
== END 2020-03-15 21:00 | disposition left against medical advice (07) | DRG 377 ==
LOC: ED 04:25 → IMCU 08:13 → 3A 03-14 16:51
PROVIDERS: ADMIT Internal Medicine; ATTEND Internal Medicine
PROC: 30233N1 Transfusion of Nonautologous Red Blood Cells into Peripheral Vein, Percutaneous Approach (ICD-10-PCS; principal; 2020-03-13)
PROC: 0DB68ZX Excision of Stomach, Via Natural or Artificial Opening Endoscopic, Diagnostic (ICD-10-PCS; 2020-03-13)
DX: K29.71 Gastritis, unspecified, with bleeding (principal); N17.0 Acute kidney failure with tubular necrosis; E11.65 Type 2 diabetes mellitus with hyperglycemia; I16.1 Hypertensive emergency; D62 Acute posthemorrhagic anemia; R79.89 Other specified abnormal findings of blood chemistry; E87.1 Hypo-osmolality and hyponatremia; Z88.0 Allergy status to penicillin; E11.22 Type 2 diabetes mellitus with diabetic chronic kidney disease; I12.9 Hypertensive chronic kidney disease with stage 1 through stage 4 chronic kidney disease, or unspecified chronic kidney disease; N18.3 Chronic kidney disease, stage 3 (moderate); F17.210 Nicotine dependence, cigarettes, uncomplicated; I42.9 Cardiomyopathy, unspecified; K21.9 Gastro-esophageal reflux disease without esophagitis; Z91.14 Patient's other noncompliance with medication regimen; K25.4 Chronic or unspecified gastric ulcer with hemorrhage; D64.9 Anemia, unspecified; Z82.49 Family history of ischemic heart disease and other diseases of the circulatory system; K22.8 Other specified diseases of esophagus; Z79.4 Long term (current) use of insulin
CPT/HCPCS: 36415; 71045; 80048; 80053; 80061; 80076; 82140; 82550; 82553; 82805; 82962; 83036; 83690; 83735; 83880; 84484; 85014; 85018; 85025; 85730; 86850; 86900; 86901; 86920; 88305; 88342; 93005; 93306; 96374; 96375; 96376; G0378; C9113; J1815; J2270; J2405; J2704; J3010; J3490; J7030; J7040; P9016